=== PATIENT | female | born 1985 | race African-American/Black ===

== ENCOUNTER 2022-05-22 19:28 | Emergency (ER) | payer OTHER ==
[~2022-05-22] VITALS: Ht 149.9 cm; Wt 66.7 kg
--- NOTE | 2022-05-22 20:00 | NUR ---
After being triaged, patient was sent back to waiting room due to no beds available in the ER at this time.
[2022-05-22 20:47] LABS: *CLARITY,URINE CLEAR (CLEAR); *COLOR,URINE YELLOW (YELLOW); *KETONES,URINE 2+ (NEGATIVE); LEUKOCYTE ESTERASE ,URINE NEGATIVE (NEGATIVE); NITRITE, URINE NEGATIVE (NEGATIVE); PH,URINE 5.5 (5.0-8.0); UGLUCOSE NEGATIVE (NEGATIVE)
[2022-05-22 20:48] LABS: *BILIRUBIN,URIN 1+ (NEGATIVE); *BLOOD, URINE TRACE (NEGATIVE); *URINE HCG, QUAL NEGATIVE (NEGATIVE)
[2022-05-22 20:55] LABS: RBC,URINE 0-3 /HPF (0-3); WBC,URINE 0-3 /HPF (0-3)
[2022-05-22 20:56] LABS: BACTERIA,URINE FEW /HPF (NONE SEEN); SQUAMOUS EPITHELIAL CELL,UR FEW /HPF (NONE SEEN)
[2022-05-22 22:44] LABS: HEMATOCRIT 32.6 % (31.2-41.9); MEAN CORPUSCULAR HEMOGLOBIN 32.8 uug (24.7-32.8); MEAN CORPUSCULAR VOLUME 96.4 fL (75.5-95.3); PLATELET COUNT (AUTO) 203 K/uL (179-408)
--- NOTE | 2022-05-22 23:00 | NUR ---
Patient was called in for blood draw.
[2022-05-22 23:08] LABS: BILIRUBIN,DIRECT 0.1 mg/dL (0.0-0.2); BILIRUBIN,TOTAL 0.5 mg/dL (0.2-1.0); CREATININE 0.8 mg/dL (0.6-1.3); POTASSIUM 3.8 mmol/L (3.5-5.1); TOTAL PROTEIN, SERUM 7.3 g/dL (6.4-8.2)
--- NOTE | 2022-05-22 23:10 | NUR ---
Patient was sent back to waiting room to wait for bed availability in the ER.
--- NOTE | 2022-05-23 00:01 | NUR ---
Patient was called in the waiting room to be reassess but patient was not present.
== END 2022-05-23 00:10 | disposition left against medical advice (07) ==
LOC: ER 19:34
DX: R10.9 Unspecified abdominal pain (principal)
CPT/HCPCS: 36415; 83690; 84703; 85025; A4663